=== PATIENT | female | born 1965 ===

== ENCOUNTER 2024-05-28 10:07 | Inpatient (IN) | payer OTHER ==
[~2024-05-28] VITALS: Ht 162.6 cm; Wt 70.3 kg
[2024-05-28] MEDS ORDERED: SYNTHROID50 MCG PO (10:40)
[2024-05-28] MEDS ORDERED: PEPCID40 MG PO ×2 (10:41→10:42)
[2024-05-28] MEDS ORDERED: LEXAPRO20 MG PO (10:41)
[2024-05-28] MEDS ORDERED: ROSUVASTATIN CA10 MG PO (10:41)
[2024-05-28] MEDS ORDERED: PROTONIX40 MG PO (10:43)
[2024-05-28] MEDS ORDERED: HORIZANT600 MG PO (10:44)
[2024-05-28 10:45] VITALS: BP 137/73
[2024-05-28] MEDS ORDERED: TRAZODONE HCL150 MG PO (10:45)
[2024-05-28] MEDS ORDERED: COZAAR25 MG PO (10:45)
[2024-06-03] MEDS ORDERED: MEDROLPACK PO (10:00)
[2024-06-03] MEDS ORDERED: PROMETHAZINE HCL 50 MG/ML AMPUL IM PRN (10:00)
[2024-06-03] MEDS ORDERED: 0.9 % SODIUM CHLORIDE 1,000 ML IV SCH (10:00)
[2024-06-03] MEDS ORDERED: PERCOCET 5-3251 EACH PO (10:00)
[2024-06-03] MEDS ORDERED: BACTRIM DS TAB1 EACH PO (10:00)
[2024-06-03] MEDS ORDERED: ENALAPRILAT DIHYDRATE 1.25 MG/ML VIAL IV PRN (10:00)
[2024-06-03] MEDS ORDERED: NEURONTIN800 MG PO (10:01)
[2024-06-03] MEDS ORDERED: COLACE100 MG PO (10:01)
[2024-06-03] MEDS ORDERED: GABAPENTIN100 M2 PO (10:01)
[2024-06-03] MEDS ORDERED: DOCUSATE SODIUM 100MG CAP PO SCH (13:00)
[2024-06-03] MEDS ORDERED: MORPHINE SULFATE 4 MG,MORPHINE SULFATE 2 MG IV SCH (13:00)
[2024-06-03] MEDS ORDERED: VANCOMYCIN HCL 1,000 MG VIAL ONE ×2 (13:06→13:34)
[2024-06-03] MEDS ORDERED: METHYLPREDNISOLONE ACETATE 80 MG/ML VIAL ONE (13:33)
[2024-06-03] MEDS ORDERED: METHYLPREDNISOLONE SOD SUCC 125 MG VIAL ONE ×2 (13:34→18:25)
[2024-06-03] MEDS ORDERED: CEFAZOLIN SODIUM 1,000 MG VIAL ONE (13:35)
[2024-06-03] MEDS ORDERED: THROMBIN,HU/FIBRINOGEN/CALCIUM 10 ML SYRINGE TOP ONE (15:03)
[2024-06-03] MEDS ORDERED: METHYLPREDNISOLONE SOD SUCC 125 MG VIAL IV ONE ×2 (15:15)
[2024-06-03] MEDS ORDERED: VANCOMYCIN HCL 1,000 MG VIAL IR ONE ×2 (15:15)
[2024-06-03] MEDS ORDERED: METHYLPREDNISOLONE SOD SUCC 125 MG VIAL IV SCH (17:00)
[2024-06-03] MEDS ORDERED: FAMOtidine 20 MG TABLET PO SCH (17:00)
[2024-06-03] MEDS ORDERED: MORPHINE SULFATE 4 MG/ML VIAL IV ONE ×3 (18:30→19:00)
[2024-06-03 20:40] VITALS: BP 137/73; O2SAT 95
[2024-06-03] MEDS ORDERED: GABAPENTIN 800 MG TABLET PO SCH (21:00)
[2024-06-03] MEDS ORDERED: TRAZODONE HCL 50 MG TABLET PO SCH (21:00)
[2024-06-03] MEDS ORDERED: VANCOMYCIN HCL 1,000 MG VIAL IV SCH (21:00)
[2024-06-04] MEDS ORDERED: SODIUM CHLORIDE 0.45 % 1,000 ML IV SCH
[2024-06-04 04:24] VITALS: BP 134/82
[2024-06-04 06:00] VITALS: BP 148/78; O2SAT 95
[2024-06-04] MEDS ORDERED: LEVOTHYROXINE SODIUM 50 MCG TABLET PO SCH (06:00)
[2024-06-04] MEDS ORDERED: OxyCODONE HCL/APAP UD (PERCOCET) PO PRN (06:01)
[2024-06-04 06:49] LABS: HEMATOCRIT 39.2 % (36.0-45.00); HEMOGLOBIN 13.5 g/dL (12.0-15.00); MEAN CELL VOLUME 88.2 fL (80.00-100.00); MEAN CORPUSCULAR HEMOGLOBIN 30.2 pg (27.00-32.0); MEAN CORPUSCULAR HGB CONC 34.3 g/dl (32.0-36.0); PLATELET COUNT 262 K/uL (150-450); RED BLOOD COUNT 4.45 M/uL (4.00-6.00); RED CELL DISTRIBUTION WIDTH 13.2 % (11.5-14.5)
[2024-06-04 07:19] LABS: CREATININE SERUM 0.55 mg/dL (0.55-1.02); GFR 113.52; POTASSIUM 4.1 mEq/L (3.5-5.1)
[2024-06-04 08:33] VITALS: BP 140/70; O2SAT 98
[2024-06-04] MEDS ORDERED: TAMSULOSIN HCL 0.4 MG CAP PO SCH (09:00)
[2024-06-04] MEDS ORDERED: PATIENTS OWN MEDICATION (MEDICAMENTO EN PISO) PO SCH ×2 (09:00)
[2024-06-04] MEDS ORDERED: LOSARTAN POTASSIUM 25 MG TABLET PO SCH (09:00)
[2024-06-04] MEDS ORDERED: LOSARTAN POTASSIUM 25 MG TABLET PO STA (09:26)
[2024-06-04] MEDS ORDERED: PATIENTS OWN MEDICATION (MEDICAMENTO EN PISO) PO STA ×3 (11:12→11:13)
[2024-06-04 12:28] VITALS: BP 119/64; O2SAT 98
[2024-06-04 15:30] VITALS: BP 131/77; O2SAT 97
[2024-06-04 20:00] VITALS: BP 113/53; O2SAT 97
[2024-06-05 01:00] VITALS: BP 115/62; O2SAT 96
[2024-06-05 05:00] VITALS: BP 111/64; O2SAT 96
[2024-06-05 08:00] VITALS: BP 99/58; O2SAT 97
[2024-06-05] MEDS ORDERED: LOSARTAN POTASSIUM 25 MG TABLET PO SCH (09:00)
[2024-06-05 12:13] VITALS: BP 121/66; O2SAT 98
[2024-06-05 15:55] VITALS: BP 146/69; O2SAT 97
[2024-06-05 20:31] VITALS: BP 138/69; O2SAT 97
== END 2024-06-05 23:28 | disposition home or self-care (01) | DRG 455 ==
LOC: PED 06-03 08:14 → O/R 06-03 08:14 → SURH 06-03 10:45 → PED 06-03 17:46
PROVIDERS: ADMIT Orthopaedic Surgery Orthopaedic Surgery of the Spine; ATTEND Orthopaedic Surgery Orthopaedic Surgery of the Spine
PROC: XRGC0R7 Fusion of 2 or more Lumbar Vertebral Joints using Custom-Made Anatomically Designed Interbody Fusion Device, Open Approach, New Technology Group 7 (ICD-10-PCS; 2024-06-03)
PROC: 0ST20ZZ Resection of Lumbar Vertebral Disc, Open Approach (ICD-10-PCS; 2024-06-03)
PROC: 07DR0ZZ Extraction of Iliac Bone Marrow, Open Approach (ICD-10-PCS; 2024-06-03)
PROC: 4A1104G Monitoring of Peripheral Nervous Electrical Activity, Intraoperative, Open Approach (ICD-10-PCS; 2024-06-03)
PROC: 0SG1071 Fusion of 2 or more Lumbar Vertebral Joints with Autologous Tissue Substitute, Posterior Approach, Posterior Column, Open Approach (ICD-10-PCS; principal; 2024-06-03 13:00)
DX: M43.16 Spondylolisthesis, lumbar region (principal); M54.16 Radiculopathy, lumbar region